=== PATIENT | male | born 1980 | race African-American/Black ===

== ENCOUNTER 2018-01-01 00:15 | Emergency (ER) | payer OTHER ==
[~2018-01-01] VITALS: Ht 175.3 cm; Wt 109.4 kg
[2018-01-01 01:22] LABS: HEMOGLOBIN 13.1 G/DL (12.5-16.6); MCH 29.2 PG (29.0-34.0); MCHC 34.5 G/DL (30.0-36.0); MCV 84.8 FL (86-99); PLATELET COUNT 270 K/uL (156-360); RBC DIS.WIDTH-SD 39.9 % (39-53); RED BLOOD COUNT 4.48 M/uL (4.00-5.50); WHITE BLOOD COUNT 5.1 K/uL (4.1-10.2)
[2018-01-01 01:36] LABS: CHLORIDE 106 mEq/L (99-109); POTASSIUM 3.8 mEq/L (3.7-5.4); SODIUM 141 mEq/L (136-147)
[2018-01-01 01:38] LABS: GLUCOSE 102 mg/dL (70-99)
[2018-01-01 01:42] LABS: CREATININE 1.1 mg/dL (0.6-1.3); GFR ESTIMATE (CALCULATED) > 59 mL/min/ (58.99-99999)
[2018-01-01 01:43] LABS: UREA NITROGEN (BUN) 11 mg/dL (9-23)
[2018-01-01] MEDS ORDERED: LISINOPRIL10 MG PO (02:01)
[2018-01-01 02:10] VITALS: BP 136/92
== END 2018-01-01 02:10 | disposition home or self-care (01) ==
LOC: EME 00:15
PROVIDERS: Emergency Medicine
DX: I10 Essential (primary) hypertension (principal); R51 Headache; R06.02 Shortness of breath; Z91.14 Patient's other noncompliance with medication regimen
CPT/HCPCS: 80048; 85027; 99281; 99284